=== PATIENT | female | born 1940 | race Caucasian/White ===

== ENCOUNTER 2022-01-26 13:39 | Emergency (ER) | payer OTHER ==
[~2022-01-26] VITALS: Ht 157.5 cm; Wt 71.7 kg
[~2022-01-26 13:39] MED LIST: LANTUS100 U/ML; NORVASC10 MG; PLETAL100 MG; SYNTHROID100 MCG PO; SYNTHROID50 MCG; TENORMIN100 MG PO
== END 2022-01-26 16:18 | disposition home or self-care (01) ==
LOC: ER 13:39
DX: L03.115 Cellulitis of right lower limb (principal); I10 Essential (primary) hypertension; Z91.040 Latex allergy status; E03.9 Hypothyroidism, unspecified; Z79.4 Long term (current) use of insulin; E11.9 Type 2 diabetes mellitus without complications